=== PATIENT | male | born 1985 | race Caucasian/White ===

== ENCOUNTER 2023-12-31 17:47 | Emergency (ER) | payer SELFPAY ==
[2023-12-31 17:58] VITALS: BP 136/76; PULSE 62; RESP 16; O2SAT 98; BMI 31.5
--- NOTE | 2023-12-31 18:11 | ED_ITS ---
HPI - Skin/Abscess/Foreign Bdy General: Chief complaint: Skin/Abscess/Foreign Body Stated complaint: Left but cheek swollen and purple - drainage/fever Time Seen by Provider: 12/31/23 17:55 History of Present Illness: 38-year-old male patient comes in today for an abscess to the left inner buttocks. Patient has been dealing with this for approximately 2 months now. It has been waxing and waning. Patient comes in tonight for increased pain and discomfort. Patient was seen at [facility] emergency room about 6 to 8 weeks ago and at that time was started on antibiotics patient completed the antibiotics. Patient appears nontoxic. Patient appears moderate pain. Related Data Previous Rx's Medication Instructions Recorded clindamycin HCl 300 mg capsule 300 mg PO Q8H 7 days #21 caps 12/31/23 hydrocodone 5 mg-acetaminophen 325 1 tab PO Q6H PRN pain #7 tabs 12/31/23 mg tablet Allergies Allergy/AdvReac Type Severity Reaction Status Date / Time morphine Allergy ADR-Agitate Verified 12/31/23 18:04 d Review of Systems General: Reports: 10 or more systems reviewed and unremarkable except in HPI and below Skin/Breast: Reports: new lesions (Abscess noted to the left antibiotic.) Physical Exam Const: COMMON NORMALS: alert HENMT: COMMON NORMALS: normocephalic HEAD & SCALP: normocephalic Neck/C-Spine: COMMON NORMALS: full ROM Resp: COMMON NORMALS: normal respiratory effort Cardio: COMMON NORMALS: regular rate RATE: regular rate Back/Pelvis: COMMON NORMALS: thoracic and lumbar spine normal to inspection Extremity: COMMON NORMALS: full ROM Neuro: SENSORIUM/ORIENTATION: Yes alert Skin: COMMON NORMALS: turgor normal GENERAL SKIN EXAM: turgor normal LESIONS: other (Abscess left inner buttock.) Procedures Abscess I/D Site: jose-rectal Side (if applicable): left Sedation/analgesia: fentanyl Local Anesthetic: lidocaine 2% and with epi Amount of anesthesia used (mL): 5 Technique: incised with #11 blade Amount of fluid expressed (mL): 10 Irrigation: No Packing used?: plain (8cm) Course Vital Signs: Vital signs: Vital Signs Pulse Rate 79 12/31/23 18:40 Respiratory Rate 12 12/31/23 18:40 Blood Pressure 136/76 10/30/24 17:58 Pulse Oximetry 96 12/31/23 18:40 Oxygen Delivery Me thod Room Air 12/31/23 18:40 MDM - Skin/Abscess/Foreign Bdy Medicial Decision Making Patient comes in today with increased size and abscess to left inner buttock. Patient appears nontoxic. Patient appears no acute distress. Respirations are even. Lungs are clear to auscultation. Skin is warm and dry. Fluctuant mass noted to the left inner buttock. Some erythema surrounding the area. Differential diagnosis includes perirectal abscess, perianal fistula, skin abscess. At this time I&D was performed with considerable bout of bloody purulent drainage. Approximately 10 mL. Patient be treated with clindamycin and schedule appointment for follow-up with surgeon for further evaluation. Patient had relief of pain and discomfort and reported no other concerns at this time. Prescriptions were sent to patient's preferred pharmacy. No radiology studies performed this visit Discharge Plan Discharge Patient Disposition: Home Clinical Impression: Abscess of skin or subcutaneous tissue Qualifiers: Site of cutaneous abscess: buttock Qualified Code(s): L02.31 - Cutaneous abscess of buttock Condition: Stable Prescriptions: New clindamycin HCl 300 mg capsule 300 mg PO Q8H 7 Days Qty: 21 0RF hydrocodone-acetaminophen 5-325 mg tablet 1 tab PO Q6H PRN (Reason: pain) Qty: 7 0RF Discharge Orders: Discharge ED (Routine); Ordered 12/31/23 Ordered By: Michael Baez Discharge Diet: Usual diet Discharge Activity: Increase activity as tolerated Patient Instructions: Abscess Incision and Drainage (DC) Activity Restrictions/Additional Instructions: Take antibiotic as directed. Drink plenty of water and fluids with medication. Use acetaminophen and/or ibuprofen to help with pain. Use hydrocodone for severe pain. Follow-up with surgeon for further evaluation and treatment. Case management will contact you to assist with follow-up appointment. 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
[2023-12-31 18:22] VITALS: RESP 16; O2SAT 98
[2023-12-31] MEDS: fentaNYL 50 mcg/mL INJ 2mL 100 MCG IVP (18:22)
[2023-12-31] MEDS: clindamycin 900 MG/50 ML PREMIX 100 MG IV (18:23)
[2023-12-31] MEDS: ketorolac 30 mg/mL INJ 15 MG IVP (18:23)
[2023-12-31 18:40] VITALS: PULSE 79; RESP 12; O2SAT 96
[2023-12-31 19:01] VITALS: BP 103/55; PULSE 68; RESP 12; O2SAT 95
--- NOTE | 2024-01-02 07:55 | DCPLANNER ---
messaged gen surg for er f/u
== END 2023-12-31 19:00 | disposition home or self-care (01) ==
PROVIDERS: Emergency Provider Nurse Practitioner Family
DX: L02.31 Cutaneous abscess of buttock (principal)
CPT/HCPCS: 46040; 96374; 96375; 99284; J1885; J3010; J3490